=== PATIENT | male | born 1980 | race Caucasian/White ===

== ENCOUNTER 2018-05-04 07:55 | Emergency (ER) | payer BC, OTHER ==
[2018-05-04] MEDS: LORAZEPAM 2 MG INJ IV (08:09)
[2018-05-04] MEDS: SOD CHLORIDE 0.9% 1,000 ML IV (08:09)
[2018-05-04 08:12] LABS: ADD MAN DIFF? NO
[2018-05-04 08:14] LABS: WHITE BLOOD COUNT 8.5 10^3/ul (4.8-10.8)
[2018-05-04 08:14] LABS: BASOPHILS % 0.5 % (0.0-2.0); EOSINOPHILS # 0.2 10^3/ul (0.0-0.5); EOSINOPHILS % 2.2 % (0.0-7.0); HEMATOCRIT 43.6 % (42.0-52.0); HEMOGLOBIN 14.7 g/dl (14.0-18.0); LYMPHOCYTES # 1.9 10^3/ul (0.8-2.9); LYMPHOCYTES % 21.7 % (15.0-51.0); MEAN CORPUSCULAR HEMOGLOBIN 30.6 pg (29.0-33.0); MEAN CORPUSCULAR HGB CONC 33.7 g/dl (32.0-37.0); MEAN CORPUSCULAR VOLUME 90.6 fl (82.0-101.0); MEAN PLATELET VOLUME 11.7 fl (7.4-10.4); MONOCYTE # 0.6 10^3/ul (0.3-0.9); MONOCYTES % 6.8 % (0.0-11.0); NEUTROPHIL # 5.8 10^3/ul (1.6-7.5); NEUTROPHILS % 68.6 % (39.0-77.0); PLATELET COUNT 180 10^3/UL (140-415); RED BLOOD COUNT 4.81 10^6/ul (4.70-6.10); RED CELL DISTRIBUTION WIDTH 12.5 % (11.5-14.5)
[2018-05-04 08:32] LABS: ALANINE AMINOTRANSFERASE 91 IU/L (13-69); ALBUMIN 4.2 g/dl (3.3-4.9); ALBUMIN/GLOBULIN RATIO 1.44; ALKALINE PHOSPHATASE 75 IU/L (42-121); ANION GAP 17 (8-16); ASPARTATE AMINO TRANSFERASE 77 IU/L (15-46); BILIRUBIN,INDIRECT 1.3 mg/dl (0-1.1); BILIRUBIN,TOTAL 1.3 mg/dl (0.2-1.3); BLOOD UREA NITROGEN 14 mg/dl (7-20); CALCIUM 8.9 mg/dl (8.4-10.2); CARBON DIOXIDE 22 mmol/L (21-31); CHLORIDE 105 mmol/L (97-110); GLUCOSE 291 mg/dl (70-220); SODIUM 140 mmol/L (135-144); TOTAL PROTEIN 7.1 g/dl (6.1-8.1)
[2018-05-04 08:34] LABS: ACETAMINOPHEN < 10.0 ug/ml (10.0-30.0); SALICYLATE < 1.0 mg/dl (5.0-30.0)
[2018-05-04 09:10] LABS: TROPONIN-I < 0.010 ng/ml (0.000-0.120)
[2018-05-04 10:54] LABS: BARBITURATES Negative (NEGATIVE); BENZODIAZEPINES Negative (NEGATIVE); CANNABINOIDS Negative (NEGATIVE); OPIATES Negative (NEGATIVE)
[2018-05-04 11:05] LABS: AMPHETAMINE/METHAMPHETAMINE POSITIVE (NEGATIVE); COCAINE Positive (NEGATIVE)
[2018-05-04] MEDS ORDERED: DIPHENHYDRAMINE 50 MG INJ (19:04)
[2018-05-04] MEDS ORDERED: HALOPERIDOL 5 MG INJ (19:04)
[2018-05-04] MEDS ORDERED: LORAZEPAM 2 MG INJ (19:05)
[2018-05-04] MEDS: HALOPERIDOL 5 MG INJ IM (19:50)
[2018-05-04] MEDS: LORAZEPAM 2 MG INJ IM (19:50)
[2018-05-04] MEDS: DIPHENHYDRAMINE 50 MG INJ IM (19:50)
[2018-05-05] MEDS: OLANZAPINE 5 MG TAB PO ×2 (09:00→21:00)
[2018-05-06] MEDS: OLANZAPINE 5 MG TAB PO (09:54)
== END 2018-05-06 18:14 | disposition home or self-care (01) ==
LOC: E/R 05-06 06:26
DX: F15.10 Other stimulant abuse, uncomplicated (principal); R44.0 Auditory hallucinations; R45.1 Restlessness and agitation; R00.0 Tachycardia, unspecified; F10.10 Alcohol abuse, uncomplicated; T43.621A Poisoning by amphetamines, accidental (unintentional), initial encounter; E11.65 Type 2 diabetes mellitus with hyperglycemia; G47.33 Obstructive sleep apnea (adult) (pediatric); F14.10 Cocaine abuse, uncomplicated; I10 Essential (primary) hypertension; F17.210 Nicotine dependence, cigarettes, uncomplicated; K83.1 Obstruction of bile duct
CPT/HCPCS: 36415; 71045; 80053; 80307; 82962; 84484; 85025; 93005; 96372; 96374; 99285-25

== ENCOUNTER 2019-02-16 20:46 | Inpatient (IN) | payer BC, OTHER ==
[2019-02-16 21:17] LABS: ADD MAN DIFF? NO
[2019-02-16] MEDS: CEFTRIAXONE 1 GM/50 ML (PMX) 50 ML IVPB (21:21)
[2019-02-16] MEDS: SODIUM CHLORIDE 0.9% 1L BAG IV* (21:22)
[2019-02-16 21:25] LABS: BASOPHIL # 0.1 10^3/ul (0.0-0.1); BASOPHILS % 0.6 % (0.0-2.0); EOSINOPHILS # 0.4 10^3/ul (0.0-0.5); EOSINOPHILS % 4.4 % (0.0-7.0); HEMATOCRIT 43.4 % (42.0-52.0); HEMOGLOBIN 14.8 g/dl (14.0-18.0); LYMPHOCYTES # 3.3 10^3/ul (0.8-2.9); LYMPHOCYTES % 35.2 % (15.0-51.0); MEAN CORPUSCULAR HEMOGLOBIN 30.9 pg (29.0-33.0); MEAN CORPUSCULAR HGB CONC 34.1 g/dl (32.0-37.0); MEAN CORPUSCULAR VOLUME 90.6 fl (82.0-101.0); MEAN PLATELET VOLUME 11.7 fl (7.4-10.4); MONOCYTE # 0.5 10^3/ul (0.3-0.9); NEUTROPHILS % 54.4 % (39.0-77.0); PLATELET COUNT 234 10^3/UL (140-415); RED BLOOD COUNT 4.79 10^6/ul (4.70-6.10); RED CELL DISTRIBUTION WIDTH 11.9 % (11.5-14.5)
[2019-02-16 21:25] LABS: WHITE BLOOD COUNT 9.3 10^3/ul (4.8-10.8)
[2019-02-16 21:43] LABS: ALANINE AMINOTRANSFERASE 140 IU/L (13-69); ALBUMIN 4.1 g/dl (3.3-4.9); ALBUMIN/GLOBULIN RATIO 1.32; ALKALINE PHOSPHATASE 82 IU/L (42-121); ANION GAP 15 (5-13); ASPARTATE AMINO TRANSFERASE 79 IU/L (15-46); BILIRUBIN,INDIRECT 0.3 mg/dl (0-1.1); BILIRUBIN,TOTAL 0.3 mg/dl (0.2-1.3); BLOOD UREA NITROGEN 11 mg/dl (7-20); CALCIUM 8.2 mg/dl (8.4-10.2); CARBON DIOXIDE 21 mmol/L (21-31); CHLORIDE 105 mmol/L (97-110); CREATININE 0.78 mg/dl (0.61-1.24); Estimated GFR > 60 mL/min (>60); GLUCOSE 355 mg/dl (70-220); INR 0.86; POTASSIUM 3.4 mmol/L (3.5-5.1); PROTIME 11.8 Sec (11.9-14.9); PT RATIO 0.9; SODIUM 141 mmol/L (135-144); TOTAL PROTEIN 7.2 g/dl (6.1-8.1)
[2019-02-16 21:44] LABS: PARTIAL THROMBOPLASTIN TIME 26.8 Sec (23.0-35.0)
[2019-02-16 21:55] LABS: TROPONIN-I < 0.012 ng/ml (0.000-0.120)
[2019-02-16] MEDS: AZITHROMYCIN 500MG/NS (PMX) 250 ML IV (22:55)
[2019-02-16 23:49] LABS: LACTIC ACID 3.2 mmol/L (0.5-2.0)
[2019-02-17 00:12] LABS: MONOTEST Negative (NEG)
[2019-02-17] MEDS ORDERED: LORAZEPAM 2 MG INJ IV (00:30)
[2019-02-17] MEDS ORDERED: CEPASTAT LOZENGE MT (00:30)
[2019-02-17] MEDS ORDERED: GUAIFENESIN/CODEINE 5ML CUP PO (00:30)
[2019-02-17] MEDS ORDERED: ACETAMINOPHEN 325 MG TAB PO ×2 (01:00)
[2019-02-17] MEDS ORDERED: BISACODYL (EC) 5 MG TAB PO (01:00)
[2019-02-17] MEDS ORDERED: DOCUSATE SODIUM 100 MG CAP PO (01:00)
[2019-02-17] MEDS ORDERED: ONDANSETRON 4 MG INJ IV ×2 (01:00)
[2019-02-17] MEDS ORDERED: NACL 0.9% 3 ML SYG IV (01:00)
[2019-02-17] MEDS: LORAZEPAM 2 MG INJ IV (01:12)
[2019-02-17] MEDS: CHLORDIAZEPOXIDE 25 MG CAP PO ×4 (01:12→20:41)
[2019-02-17 02:15] LABS: LACTIC ACID 1.7 mmol/L (0.5-2.0)
[2019-02-17 05:45] LABS: ADD MAN DIFF? NO
[2019-02-17 05:52] LABS: BASOPHIL # 0.1 10^3/ul (0.0-0.1); BASOPHILS % 0.9 % (0.0-2.0); EOSINOPHILS # 0.1 10^3/ul (0.0-0.5); EOSINOPHILS % 1.3 % (0.0-7.0); HEMATOCRIT 40.1 % (42.0-52.0); HEMOGLOBIN 13.7 g/dl (14.0-18.0); LYMPHOCYTES # 2.2 10^3/ul (0.8-2.9); LYMPHOCYTES % 29.3 % (15.0-51.0); MEAN CORPUSCULAR HEMOGLOBIN 30.9 pg (29.0-33.0); MEAN CORPUSCULAR HGB CONC 34.2 g/dl (32.0-37.0); MEAN CORPUSCULAR VOLUME 90.3 fl (82.0-101.0); MEAN PLATELET VOLUME 11.8 fl (7.4-10.4); MONOCYTE # 0.5 10^3/ul (0.3-0.9); MONOCYTES % 6.2 % (0.0-11.0); NEUTROPHIL # 4.6 10^3/ul (1.6-7.5); NEUTROPHILS % 61.9 % (39.0-77.0); PLATELET COUNT 194 10^3/UL (140-415); RED BLOOD COUNT 4.44 10^6/ul (4.70-6.10)
[2019-02-17 05:52] LABS: WHITE BLOOD COUNT 7.4 10^3/ul (4.8-10.8)
[2019-02-17 06:05] LABS: LACTIC ACID 1.9 mmol/L (0.5-2.0)
[2019-02-17 06:11] LABS: ALANINE AMINOTRANSFERASE 122 IU/L (13-69); ALBUMIN 3.8 g/dl (3.3-4.9); ALBUMIN/GLOBULIN RATIO 1.35; ALKALINE PHOSPHATASE 64 IU/L (42-121); ANION GAP 7 (5-13); ASPARTATE AMINO TRANSFERASE 65 IU/L (15-46); BILIRUBIN,INDIRECT 0.5 mg/dl (0-1.1); BILIRUBIN,TOTAL 0.5 mg/dl (0.2-1.3); BLOOD UREA NITROGEN 8 mg/dl (7-20); CALCIUM 7.8 mg/dl (8.4-10.2); CARBON DIOXIDE 25 mmol/L (21-31); CHLORIDE 108 mmol/L (97-110); CHOL/HDL RATIO 5.3 RATIO; CHOLESTEROL 165 mg/dl (100-200); CREATININE 0.68 mg/dl (0.61-1.24); Estimated GFR > 60 mL/min (>60); GLUCOSE 232 mg/dl (70-220); HDL CHOLESTEROL 31 mg/dl (27-67); LDL CHOLESTEROL,CALCULATED 56 mg/dl; POTASSIUM 3.8 mmol/L (3.5-5.1); SODIUM 140 mmol/L (135-144); TOTAL PROTEIN 6.6 g/dl (6.1-8.1); TRIGLYCERIDES 389 mg/dl (0-149)
[2019-02-17] MEDS ORDERED: LEVALBUTEROL (NEB) 1.25 MG/0.5 ML AMP HHN (08:00)
[2019-02-17] MEDS: IOHEXOL 300MG/ML 150 ML BTL (08:20)
[2019-02-17] MEDS: SOD CHLORIDE 0.9% 100 ML (08:20)
[2019-02-17] MEDS: MULTIVITAMINS THERAPEUTIC TAB PO (09:55)
[2019-02-17] MEDS: THIAMINE 100 MG TAB PO (09:55)
[2019-02-17] MEDS: FOLIC ACID 1 MG TAB PO (09:56)
[2019-02-17] MEDS: AMLODIPINE 2.5 MG TAB PO (09:56)
[2019-02-17] MEDS: INSULIN ASPART [NOVOLOG] 3 ML PEN SC ×4 (10:13→20:42)
[2019-02-17] MEDS: SOD CHLORIDE 0.9% 1,000 ML IV ×2 (12:08→22:17)
[2019-02-17] MEDS: hydrALAzine 20 MG INJ IV (12:44)
[2019-02-17] MEDS ORDERED: GLUCOSE GEL 15 GRAM TUBE BUCCAL (13:00)
[2019-02-17] MEDS ORDERED: DEXTROSE 50% 50 ML SYRINGE IV ×2 (13:00)
[2019-02-17] MEDS: DOCUSATE SODIUM 100 MG CAP PO (13:00)
[2019-02-17] MEDS ORDERED: GLUCOSE GEL 15 GRAM TUBE PO ×2 (13:00)
[2019-02-17] MEDS ORDERED: GLUCAGON 1 MG INJ IM (13:00)
[2019-02-17] MEDS: metFORMIN 500 MG TAB PO ×2 (13:31→20:42)
[2019-02-17] MEDS: ASPIRIN 81 MG TAB PO (13:32)
[2019-02-17] MEDS: LISINOPRIL 10 MG TAB PO (13:32)
[2019-02-17] MEDS: FAMOTIDINE 20 MG TAB PO ×2 (13:32→20:41)
[2019-02-17] MEDS: glipiZIDE 5 MG TAB PO ×2 (14:19→20:41)
[2019-02-17] MEDS: FENOFIBRATE 48 MG TAB PO (14:19)
[2019-02-17] MEDS: ACCU-CHEK XX ×5 (17:14→21:00)
[2019-02-17] MEDS: MULTIVITAMINS 10 ML, THIAMINE 100 MG, FOLIC ACID 1 MG in SOD CHLORIDE 0.9% 1,000 ML IVPB ×2 (19:27→19:29)
[2019-02-17] MEDS: METOPROLOL 5 MG INJ IV (19:28)
[2019-02-17] MEDS: KETOROLAC 30 MG INJ IV (19:28)
[2019-02-17] MEDS: AL HYDROX/MG HYDROX/SIMETH 30 ML CUP PO (19:29)
[2019-02-17] MEDS: PANTOPRAZOLE (EC) 40 MG TAB PO (19:29)
[2019-02-17] MEDS: AZITHROMYCIN 500MG/NS (PMX) 250 ML IVPB (19:42)
[2019-02-17] MEDS: CEFTRIAXONE 1 GM/50 ML (PMX) 50 ML IVPB (20:42)
[2019-02-18] MEDS: CHLORDIAZEPOXIDE 25 MG CAP PO ×2 (00:52→08:13)
[2019-02-18] MEDS: DOCUSATE SODIUM 100 MG CAP PO (00:54)
[2019-02-18] MEDS: ACCU-CHEK XX ×3 (02:00→07:00)
[2019-02-18 05:38] LABS: ADD MAN DIFF? NO
[2019-02-18 05:54] LABS: BASOPHILS % 0.5 % (0.0-2.0); EOSINOPHILS # 0.3 10^3/ul (0.0-0.5); EOSINOPHILS % 3.5 % (0.0-7.0); HEMATOCRIT 42.7 % (42.0-52.0); HEMOGLOBIN 14.5 g/dl (14.0-18.0); LYMPHOCYTES # 2.5 10^3/ul (0.8-2.9); LYMPHOCYTES % 30.8 % (15.0-51.0); MEAN CORPUSCULAR HEMOGLOBIN 30.6 pg (29.0-33.0); MEAN CORPUSCULAR VOLUME 90.1 fl (82.0-101.0); MEAN PLATELET VOLUME 11.5 fl (7.4-10.4); MONOCYTE # 0.6 10^3/ul (0.3-0.9); MONOCYTES % 7.4 % (0.0-11.0); NEUTROPHIL # 4.6 10^3/ul (1.6-7.5); NEUTROPHILS % 57.4 % (39.0-77.0); PLATELET COUNT 236 10^3/UL (140-415); RED BLOOD COUNT 4.74 10^6/ul (4.70-6.10); RED CELL DISTRIBUTION WIDTH 12.2 % (11.5-14.5)
[2019-02-18 05:54] LABS: WHITE BLOOD COUNT 8.1 10^3/ul (4.8-10.8)
[2019-02-18 06:20] LABS: ALANINE AMINOTRANSFERASE 107 IU/L (13-69); ALBUMIN/GLOBULIN RATIO 1.37; ALKALINE PHOSPHATASE 60 IU/L (42-121); ANION GAP 8 (5-13); ASPARTATE AMINO TRANSFERASE 60 IU/L (15-46); BILIRUBIN,INDIRECT 0.9 mg/dl (0-1.1); BILIRUBIN,TOTAL 0.9 mg/dl (0.2-1.3); BLOOD UREA NITROGEN 8 mg/dl (7-20); CALCIUM 8.7 mg/dl (8.4-10.2); CARBON DIOXIDE 28 mmol/L (21-31); CHLORIDE 104 mmol/L (97-110); CREATININE 0.85 mg/dl (0.61-1.24); Estimated GFR > 60 mL/min (>60); GLUCOSE 144 mg/dl (70-220); POTASSIUM 3.7 mmol/L (3.5-5.1); SODIUM 140 mmol/L (135-144); TOTAL PROTEIN 6.9 g/dl (6.1-8.1)
[2019-02-18] MEDS: PANTOPRAZOLE (EC) 40 MG TAB PO (06:24)
[2019-02-18 06:50] LABS: HEPATITIS B SURFACE ANTIGEN NEGATIVE (NEGATIVE)
[2019-02-18 07:08] LABS: HEPATITIS B CORE ANTIBODY NEGATIVE (NEGATIVE); HEPATITIS C VIRAL ANTIBODY NEGATIVE (NEGATIVE)
[2019-02-18] MEDS: INSULIN ASPART [NOVOLOG] 3 ML PEN SC (07:58)
[2019-02-18] MEDS: metFORMIN 500 MG TAB PO (08:06)
[2019-02-18] MEDS: AMLODIPINE 2.5 MG TAB PO (08:06)
[2019-02-18] MEDS: THIAMINE 100 MG TAB PO (08:06)
[2019-02-18] MEDS: FOLIC ACID 1 MG TAB PO (08:06)
[2019-02-18] MEDS: LISINOPRIL 10 MG TAB PO (08:07)
[2019-02-18] MEDS: glipiZIDE 5 MG TAB PO (08:07)
[2019-02-18] MEDS: ASPIRIN 81 MG TAB PO (08:07)
[2019-02-18] MEDS: FENOFIBRATE 48 MG TAB PO (08:07)
[2019-02-18] MEDS: MULTIVITAMINS THERAPEUTIC TAB PO (08:07)
[2019-02-18 08:50] LABS: HEPATITIS B SURFACE ANTIBODY INDETERMINATE (NEGATIVE)
[2019-02-18] MEDS ORDERED: ATORVASTATIN 40 MG TAB PO (09:00)
[2019-02-19] MEDS ORDERED: CHLORDIAZEPOXIDE 25 MG CAP PO (00:30)
== END 2019-02-18 09:40 | disposition left against medical advice (07) | DRG 872 ==
LOC: 6WM 23:43 → E/R 20:46
DX: A41.89 Other specified sepsis (principal); E87.2 Acidosis; N13.30 Unspecified hydronephrosis; E11.9 Type 2 diabetes mellitus without complications; I10 Essential (primary) hypertension; I25.2 Old myocardial infarction; R12 Heartburn; E11.40 Type 2 diabetes mellitus with diabetic neuropathy, unspecified; F17.200 Nicotine dependence, unspecified, uncomplicated; R13.10 Dysphagia, unspecified; F10.229 Alcohol dependence with intoxication, unspecified; E78.1 Pure hyperglyceridemia; K70.0 Alcoholic fatty liver; E11.65 Type 2 diabetes mellitus with hyperglycemia; B97.89 Other viral agents as the cause of diseases classified elsewhere
CPT/HCPCS: 36415; 70492; 71045; 71250; 76705; 80053; 80061; 80307; 82306; 82962; 83036; 83605; 84443; 84484; 85025; 85610; 85730; 86308; 86704; 86706; 86803; 87040-91; 87340; 93005; 93306; 96361; 96365; 96367; 99285-25